=== PATIENT | female | born 1985 | race Caucasian/White ===

== ENCOUNTER 2021-02-08 09:13 | Emergency (ER) | payer MEDICARE, SELFPAY ==
[2021-02-08 09:28] VITALS: BP 114/65; PULSE 92; RESP 18; TEMP 37.6; O2SAT 97
--- NOTE | 2021-02-08 09:36 | ED.GENADULT ---
HPI - General Adult General Chief complaint: Eye Problems Stated complaint: left eye pain Time Seen by Provider: 02/08/21 09:36 Source: patient and RN notes reviewed Mode of arrival: ambulatory Limitations: no limitations History of Present Illness HPI narrative: 35-year-old female presents with complains of eye puffiness, pain, burning, photophobia, and tearing of left eye for the past 3 hours. Geeta reports awaken with symptoms this morning at approximately 06:30am. No treatment. Denies injury. Mild redness. Exacerbating factor consist of light. No relieving factors. Denies blurred vision, double vision, or pain of eye with movement. Wears glasses. Denies fever. The patient reports she have not been diagnosed with COVID-19. The patient reports she received Iván and Iván vaccine on December 26, 2020. The patient reports she is not waiting for the results of a COVID-19 lab test. The patient reports she do not have chills, weakness, or fatigue. The patient reports she do not have a new or worsening cough or shortness of breath. Denies chest pain. The patient reports she do not have any rhinorrhea, congestion, sore throat, loss of taste or smell, nausea, vomiting, abdominal pain, and diarrhea. Tolerating po intake well. Denies recent traveling. Denies concerns for COVID-19 or exposures been home with limited outdoor exposure except for essential household needs and return home. At this time, patient is not suspected of having COVID-19. Some parts of this dictation were generated by voice recognition software and may contain typographical and/or grammatical inaccuracies. Related Data Home Medications Medication Instructions Recorded Confirmed levetiracetam 750 mg PO DAILY 02/08/21 02/08/21 Allergies Allergy/AdvReac Type Severity Reaction Status Date / Time No Known Allergies Allergy Unverified 02/08/21 09:21 Review of Systems Review of Systems: Narrative: CONSTITUTIONAL: Denies fever, chills, sweats. EYES: Denies visual changes. Complains of LT eye redness, puffiness, pain, burning, photophobia, and tearing. ENT: Denies rhinorrhea, congestion, sore throat, otalgia. CARDIOVASCULAR: Denies chest pain, palpitations, edema. RESPIRATORY: Denies dyspnea, wheezing, cough. GASTROINTESTINAL: Denies abdominal pain, nausea, vomiting, diarrhea. GENITOURINARY: Denies dysuria, hematuria, abnormal discharge. SKIN: Denies rash or itching. MUSCULOSKELETAL: Denies acute back pain, joint pain, or myalgia. NEUROLOGIC: Denies numbness or focal weakness. PSYCHIATRIC: Denies anxiety or depression. All systems reviewed & are unremarkable except as noted in HPI and below. 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 Family History Family History (Updated 02/08/21 @ 10:22 by ELKIN Lucas) Father Alive and well Mother Breast cancer survival for over 21 years Social History Social History (Updated 02/08/21 @ 10:24 by ELKIN Lucas) Smoking packs per day: 0.5 Smoking cigarettes per day: 10.0 Years smoked: 20 Smoking pack-years: 10.00 Smoking status: Current every day smoker Tobacco type: cigarettes Second hand tobacco smoke exposure: No Alcohol intake: current Substance use: current Substance use type: marijuana Living arrangements: with family Occupation/Education: other Additional occupation/education comments: disable Gender identity (if verbalized by the patient): Female Sexual Orientation (if Verbalized by the Patient): Straight or Heterosexual
== END 2021-02-08 10:16 | disposition home or self-care (01) ==
PROVIDERS: Emergency Provider Nurse Practitioner Family; PCP Family Medicine
DX: H01.005 Unspecified blepharitis left lower eyelid (principal); F17.210 Nicotine dependence, cigarettes, uncomplicated; Z95.0 Presence of cardiac pacemaker; G40.909 Epilepsy, unspecified, not intractable, without status epilepticus; Z86.73 Personal history of transient ischemic attack (TIA), and cerebral infarction without residual deficits
CPT/HCPCS: 99203; A9270; G0463

== ENCOUNTER 2021-03-19 08:59 | Emergency (ER) | payer MEDICARE, SELFPAY ==
[2021-03-19 09:08] VITALS: BP 118/68; PULSE 62; RESP 18; TEMP 37.5; O2SAT 99
--- NOTE | 2021-03-19 09:48 | ED.FEMALEGU ---
HPI - Female Genitourinary General Chief complaint: Urogenital-Female Stated complaint: Skin complaint Source: patient Mode of arrival: ambulatory Limitations: no limitations History of Present Illness HPI Narrative: 35-year-old female presents to [facility] with complaints of urinary frequency, urgency, pain and burning for the past 2 to 3 days. Patient reports that she will start with a erythematous raised itchy rash to her mons pubis area after shaving a few days ago. Patient has been applying [id number] Neosporin with little relief. Patient denies vaginal discharge, fever, bodies, chills, nausea, vomiting or diarrhea, abdominal pains or flank pains MD elicited complaint: dysuria Onset (ago): day(s) (2-3) Vaginal discharge: none Vaginal bleeding: none Urinary symptoms: Dysuria, Urgency, Frequency and Hematuria Relieving factors: none Treatment prior to arrival: OTC urinary analgesics Sexual activity: Yes Patient : No Related Data Home Medications Medication Instructions Recorded Confirmed levetiracetam 750 mg PO DAILY 02/08/21 03/19/21 Allergies Allergy/AdvReac Type Severity Reaction Status Date / Time No Known Allergies Allergy Verified 03/19/21 09:39 Review of Systems Constitutional: Constitutional: Denies chills and Denies fatigue Cardiovascular: Cardiovascular: Denies chest pain, Denies rapid heart rate and Denies radiating jaw, neck or arm pain Respiratory: Respiratory: Denies chest congestion, Denies cough, Denies dyspnea and Denies wheezing Gastrointestinal: Gastrointestinal: Denies abdominal pain, Denies constipation, Denies diarrhea, Denies nausea and Denies vomiting Genitourinary: Genitourinary: Reports hematuria and Reports dysuria Musculoskeletal: Musculoskeletal: Denies back pain, Denies joint swelling and Denies muscle cramps Integumentary/Breasts: Skin/Breast: Reports rash and Denies skin ulcer Neurologic: Denies vertigo, Denies dizziness, Denies syncope and Denies focal weakness [facility] Past Medical History Medical History Cardiac abnormality Cardiovascular accident 2006, 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, 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 delivery delivered Pacemaker Seizures Surgical History Surgical History H/O section 2012 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 Family History Family History Father Alive and well Mother Breast cancer survival for over 21 years Social History Social History Smoking packs per day: 0.5 Smoking cigarettes per day: 10.0 Years smoked: 20 Smoking pack-years: 10.00 Smoking status: Current every day smoker Tobacco type: cigarettes Second hand tobacco smoke exposure: No Alcohol intake: current Substance use: current Substance use type: marijuana Additional occupation/education comments: disable Gender identity (if verbalized by the patient): Female Comments At time of signature, I agree with nursing past medical, surgical, social and family history. There is no relevant family history pertinent to the presenting complaint. Repeat Exam Const: General: healthy appearing and no acute distress Orientation/consciousness: patient oriented x3 Neck: Neck: normal visual inspection Chest: Chest palpation & inspection: normal inspection of the chest and Pacemaker present Resp: Effort & Inspection: normal respiratory effort, not labored and not tachypneic Auscultation: clear to auscultation bilaterally Cardio: Rate: regular rate and bradycardic Rhythm: regular rhythm GI: Inspection: non-distended GI Palp: Yes Soft to palpation, No Tenderness to palpation present (GI), No Guarding due to palpation present (GI) and No Rigid due to
== END 2021-03-19 10:09 | disposition home or self-care (01) ==
PROVIDERS: Emergency Provider Nurse Practitioner Family; PCP Family Medicine
DX: L73.9 Follicular disorder, unspecified (principal); N30.00 Acute cystitis without hematuria; F17.210 Nicotine dependence, cigarettes, uncomplicated; G40.909 Epilepsy, unspecified, not intractable, without status epilepticus; Z95.0 Presence of cardiac pacemaker; Z86.73 Personal history of transient ischemic attack (TIA), and cerebral infarction without residual deficits
CPT/HCPCS: 81003; 87077; 87086; 87186; 99213; G0463

== ENCOUNTER 2021-05-28 17:14 | Emergency (ER) | payer MEDICARE, SELFPAY ==
[2021-05-28 17:25] VITALS: BP 97/58; PULSE 85; RESP 18; TEMP 37.4; O2SAT 98
--- NOTE | 2021-05-28 17:51 | ED.SKABFB ---
HPI - Skin/Abscess/Foreign Bdy General Chief complaint: Skin/Abscess/Foreign Body Stated complaint: Boil under left Arm Source: patient and RN notes reviewed Limitations: no limitations History of Present Illness HPI narrative: The patient, disabled from mild left hemiparesis, presents with skin eruption. Patient states she has a prior history of CVA and axillary abscess, and now has 1/2-week history of left axillary boil. She has suffered a mild stroke in the past and that arm is hemiparetic. No fever, spontaneous discharge, or surrounding redness, streaking; symptoms are mild to moderate worse with palpation or movement. Related Data Home Medications Medication Instructions Recorded Confirmed levetiracetam 750 mg PO DAILY 02/08/21 05/28/21 Allergies Allergy/AdvReac Type Severity Reaction Status Date / Time No Known Allergies Allergy Verified 05/28/21 17:38 Review of Systems Review of Systems: General/Constitutional: No weight loss,fever Eyes: N0: Redness,discharge Ears/Nose/Throat: No: Epistaxis,ear discharge Respiratory: Denies: Hemoptysis Gastrointestinal: No Vomiting, Bleeding-rectal Skin: REPORTS lumps, eruption Neurologic: No Focal Weakness,Sz Hematologic: Denies: Petechiae/Purpura Psychiatric: No: Suicida ideationl All Other Systems: Reviewed and Negative [facility] Past Medical History Medical History Cardiac abnormality Cardiovascular accident 2006, 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, 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 delivery delivered Pacemaker Seizures Surgical History Surgical History H/O section 2012 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 Family History Family History Father Alive and well Mother Breast cancer survival for over 21 years Social History Social History Smoking packs per day: 0.5 Smoking cigarettes per day: 10.0 Years smoked: 20 Smoking pack-years: 10.00 Smoking status: Current every day smoker Tobacco type: cigarettes Second hand tobacco smoke exposure: No Alcohol intake: current Substance use: current Substance use type: marijuana Additional occupation/education comments: disable Gender identity (if verbalized by the patient): Female Comments At time of signature, agree with nursing past medical, surgical, social and family history. There is no relevant family history pertinent to the presenting complaint Exam Narrative: General Appearance: Lean/thin Head: Normocephalic Eye: PERRLA, Conjunctiva clear Ear: External ear normal Nose: Normal nose, Nare clear Mouth/Throat: Normal appearing Neck Exam: Supple Respiratory: Airway patent, No respiratory distress Skin: Warm, Dry ; 2 x 4 cm left axillary abscess Neurological: A&O x3 Psychiatric: Normal mood, Normal affect Course Vital Signs Vital signs: Vital Signs Temperature 99.3 F 05/28/21 17:25 Pulse Rate 85 05/28/21 17:25 Respiratory Rate 18 05/28/21 17:25 Blood Pressure 97/58 L 05/28/21 17:25 Pulse Oximetry 98 05/28/21 17:25 Temperature 99.3 F 05/28/21 17:25 Pulse Rate 85 05/28/21 17:25 Respiratory Rate 18 05/28/21 17:25 Blood Pressure 97/58 L 05/28/21 17:25 Pulse Oximetry 98 05/28/21 17:25 Procedures Abscess I/D upper extremity: Date of Incision: 05/28/21 Side (if applicable): left Local Anesthetic: other anesthetic (EMLA) Technique: incised with #11 blade Amount of fluid expressed (mL): 2 Irrigation: No Packing used?: none I&D Results: Pus and Blood Complications: pain Discharge Plan Discharge Clinical Impression: Abscess Patient Disposition: Home, Self-Care Condition: Stable
[2021-05-28] MEDS: LIDOCAINE/PRILOCAINE CREAM 2.5-2.5% TUBE 1 EACH TOPICAL (17:55)
== END 2021-05-28 19:04 | disposition home or self-care (01) ==
PROVIDERS: Emergency Provider Emergency Medicine
DX: L02.412 Cutaneous abscess of left axilla (principal); F17.210 Nicotine dependence, cigarettes, uncomplicated; G40.909 Epilepsy, unspecified, not intractable, without status epilepticus; Z95.0 Presence of cardiac pacemaker; I69.854 Hemiplegia and hemiparesis following other cerebrovascular disease affecting left non-dominant side
CPT/HCPCS: 10060; 99213; G0463

== ENCOUNTER 2024-04-13 12:31 | Emergency (ER) | payer MEDICARE, SELFPAY ==
--- NOTE | ~2024-04-13 | XR_ITS ---
EXAMINATION: XR ankle LT min 3V DATE: 04/13/2024 13:03 INDICATION: Left ankle injury and pain. TECHNIQUE: 4 views of left ankle were obtained. COMPARISON: None. FINDINGS: Bone alignment is normal. There is a chip fracture of distal tip of fibula. Joint spaces ar e normal. There is ankle soft tissue swelling. IMPRESSION: 1. Chip fracture of distal tip of fibula. Reviewed, dictated and finalized at location A.
[2024-04-13 12:40] VITALS: BP 114/69; PULSE 98; RESP 18; TEMP 36.6; O2SAT 98
--- NOTE | 2024-04-13 12:48 | ED.LOWEXIN ---
HPI - Extremity Injury (Lower) General Chief Complaint: Extremity Injury, Lower Stated Complaint: Left Ankle injury Time Seen by Provider: 04/13/24 12:48 Source: patient, RN notes reviewed and old records reviewed Mode of arrival: ambulatory Limitations: no limitations History of Present Illness HPI Narrative: 38 year old female who presents to [facility] care with complaints of falling down 2 steps in kitchen onto hard floor 3 days ago with complaints of left ankle pain and swelling to her left ankle and foot with some bruising noted. Patient had hemorrhagic stroke in 2005 and has weakness to her left extremities and uses brace to her left foot and lower leg to assist with ambulation, left hand is contracted.Patient reports that she has used ice to her left ankle and foot, taken Aleve and also has elevated her left lower extremity. MD complaint: ankle injury and other (bruising to lateral foot with minimal swelling of left foot.) Onset (ago): day(s) (3) Injury: Left: ankle and foot Type of Injury: other (fall) Place: home Severity scale (1-10): 7 Associated symptoms: swelling and other (bruising to lateral side of foot below calcaneous) Treatments prior to arrival: cold therapy and NSAIDS (Aleve and elevate) Related Data Home Medications Medication Instructions Recorded Confirmed levetiracetam 750 mg tablet 750 mg PO DAILY 02/08/21 04/13/24 Allergies Allergy/AdvReac Type Severity Reaction Status Date / Time No Known Allergies Allergy Verified 04/13/24 13:17 Review of Systems Review of Systems: CONSTITUTIONAL: Denies fever, chills, or sweats. EYES: Denies visual changes, redness, or discharge. ENT: Denies rhinorrhea, congestion, sore throat, or otalgia. CARDIOVASCULAR: Denies chest pain, palpitations, or edema. RESPIRATORY: Denies cough or dyspnea. GASTROINTESTINAL: Denies abdominal pain, nausea, vomiting, or diarrhea. GENITOURINARY: Denies dysuria or hematuria. SKIN: Denies rash or itching. MUSCULOSKELETAL: Denies back pain,positive for left ankle pain with swelling with minimal swelling of valeria with bruising lateral foot, or myalgia. NEUROLOGIC: Denies headache, numbness, or weakness. PSYCHIATRIC: Denies anxiety or depression. 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 Hx of brain surgery Family History Family History Father Alive and well Mother Breast cancer survival for over 21 years Social History Social History Smoking packs per day: 0.5 Smoking cigarettes per day: 10.0 Years smoked: 20 Smoking pack-years: 10.00 Smoking status: Current every day smoker Tobacco type: cigarettes Second hand tobacco smoke exposure: No Alcohol intake: current Substance use: current Substance use type: marijuana Living arrangements: with family Occupation/Education: other Additional occupation/education comments: disable Gender identity (if verbalized by the patient): Female Sexual Orientation (if Verbalized by the Patient): Straight or Heterosexual Comments At time of signature, agree with nursing past medical, surgical, social and family history. There is no relevant family history pertinent to the presenting complaint Exam Narrative: GENERAL: Well-appearing, well-nourished, and in no acute distress. HEAD: Normocephalic, atraumatic. EYES: PERRLA and EOMI. ENT: Nares clear, no rhinorrhea or
== END 2024-04-13 14:00 | disposition home or self-care (01) ==
PROVIDERS: Emergency Provider Registered Nurse; PCP Family Medicine
DX: S82.832A Other fracture of upper and lower end of left fibula, initial encounter for closed fracture (principal); W10.9XXA Fall (on) (from) unspecified stairs and steps, initial encounter; I69.354 Hemiplegia and hemiparesis following cerebral infarction affecting left non-dominant side; G40.909 Epilepsy, unspecified, not intractable, without status epilepticus; F17.210 Nicotine dependence, cigarettes, uncomplicated
CPT/HCPCS: 73610; 99214; G0463